=== PATIENT | female | born 1980 | race Caucasian/White ===

== ENCOUNTER 2022-07-10 02:18 | Emergency (ER) | payer OTHER ==
[2022-07-10 03:25] VITALS: BP 123/72; PULSE 79; RESP 16; TEMP 98.9; BMI 25.0
== END 2022-07-10 03:10 | disposition home or self-care (01) ==
LOC: JER 02:18
DX: R09.81 Nasal congestion (principal); R05.1 Acute cough; M79.10 Myalgia, unspecified site
CPT/HCPCS: 99281-25

== ENCOUNTER 2022-07-12 16:25 | Emergency (ER) | payer OTHER ==
[2022-07-12 16:35] VITALS: BP 109/76; PULSE 90; RESP 18; TEMP 98.5; BMI 25.0
== END 2022-07-12 21:37 | disposition home or self-care (01) ==
LOC: JER 16:25
DX: M94.0 Chondrocostal junction syndrome [Tietze] (principal)
CPT/HCPCS: 71046-TC-FY; 99284-25